=== PATIENT | male | born 1980 | race Caucasian/White ===

== ENCOUNTER 2021-03-21 09:18 | Emergency (ER) | payer BC ==
[~2021-03-21] VITALS: Ht 167.6 cm; Wt 80.1 kg
[2021-03-21 09:31] VITALS: BP 135/95
--- NOTE | 2021-03-21 09:54 | NUR ---
PT CAME IN CO "BRIGHT RED BLOOD SINCE 1400 YESTERDAY FROM RECTUM". PT DENIES BLACK STOOL OR ABD PAIN. PT ALSO REPORTS HE IS A HEAVY ETOH USER. [facility]END B[facility]. NAD
== END 2021-03-21 10:38 | disposition home or self-care (01) ==
LOC: ED 10:11
DX: K64.4 Residual hemorrhoidal skin tags (principal)
CPT/HCPCS: 99283